=== PATIENT | female | born 1970 | race Caucasian/White ===

== ENCOUNTER → 2017-05-21 | Outpatient (CLI) | payer BC ==
[~2017-05-21] MED LIST: MULT-580 PO; OMEG10007 PO
== END | disposition home or self-care (01) ==
LOC: C.LABSPEC 15:44
PROVIDERS: ATTEND Obstetrics & Gynecology
DX: N76.2 Acute vulvitis (principal)

== ENCOUNTER → 2017-06-09 | Outpatient (CLI) | payer BC | END | disposition home or self-care (01) | LOC: C.PAPS 11:22 | PROVIDERS: ATTEND Obstetrics & Gynecology | DX: Z01.419 Encounter for gynecological examination (general) (routine) without abnormal findings (principal); Z11.51 Encounter for screening for human papillomavirus (HPV) ==

== ENCOUNTER → 2017-12-29 | Outpatient (CLI) | payer OTHER ==
--- NOTE | 2017-12-29 08:46 | DIAGNOSTIC IMAGING REPORT ---
L LOWER EXT JOINT WITHOUT CLINICAL HISTORY: 47 years-old Female presenting with LEFT KNEE PAIN, continued left knee pain status post surgery, possible meniscal tear or other damage. TECHNIQUE: Multisequence, multiplanar MR imaging of the left knee was performed without the use of intravenous contrast. IV contrast: None. COMPARISON: 04/13/2016. FINDINGS: Localizer images: Unremarkable. No bony edema. Osteophytosis noted in the lateral compartment and less extensively in the medial compartment. At least 50% articular cartilage defect in the posterior to mid weightbearing surface of the lateral femoral condyle (series 6 image 15). Similar cartilage thinning evident on the apposing mid to posterior weightbearing surface of the lateral tibial plateau (series 6 image 15). Medial compartment cartilage intact. Focal fissuring in the lateral patellar facet (series 4 image 13). Similar degree of fissuring evident in the medial patellar facet (series 4 image 12). No articular cartilage abnormality of the trochlea. Complex primarily horizontal type tear of the posterior horn-body of the lateral meniscus. Lateral meniscofemoral capsular separation suggested. Central limited increased signal intensity of the posterior horn body junction of the medial meniscus suggestive of degenerative change. Anterior and posterior cruciate ligaments intact. Medial collateral ligament intact though distention of the tibial collateral ligament bursa noted. Lateral collateral ligament complex including the biceps femoris tendon, fibular collateral ligament, popliteus tendon, popliteal fibular ligament, and iliotibial band intact. Quadriceps and patellar tendons intact though mild tendinosis of the origin of the patellar tendon may be present. Infrapatellar subcutaneous edema noted. Small joint effusion. No popliteal cyst. Normal muscle bulk and muscle signal intensity. IMPRESSION: 1. Complex, primarily horizontal type tear of the posterior horn-body of the lateral meniscus with lateral meniscofemoral capsular separation suggested. 2. MCL bursitis. 3. Cartilage defects in the lateral compartment as above with osteophytosis both in the medial and lateral compartment. Electronically signed by: Jenaro Rowland M.D. 12/29/2017 8:44 AM Dictated Date/Time: 12/29/2017 8:27 AM
== END | disposition home or self-care (01) ==
LOC: C.MRI 07:32
PROVIDERS: ATTEND Orthopaedic Surgery
DX: S83.282A Other tear of lateral meniscus, current injury, left knee, initial encounter (principal); M70.52 Other bursitis of knee, left knee; M25.762 Osteophyte, left knee; X58.XXXA Exposure to other specified factors, initial encounter

== ENCOUNTER → 2018-03-10 | Day surgery (SDC) | payer OTHER ==
[2018-02-21 10:03] VITALS: Ht 172.7 cm; Wt 109.1 kg
[~2018-03-10] VITALS: Ht 172.7 cm; Wt 109.1 kg
[~2018-03-10] MED LIST changes: +ATROPINE SULFATE 0.1 MG/ML 5ML SYR IV PRN; +CEFAZOLIN 2000MG IV PUSH 15 ML IV SCH; +DEXAMETHASONE SOD INJ 4 MG/ML VIAL ONE; +EpHEDrine SULFATE INJ 50 MG/ML AMP IV PRN; +EpINEphrine INJ 1MG/ML AMP 1 MG/ML AMP ONE; +FENTANYL CITRATE INJ 50 MCG/1 ML 2 ML VIAL IV PRN; +FENTANYL CITRATE INJ 50 MCG/1 ML 2 ML VIAL ONE; +HYDR-5688 PO; +HYDROCODONE/ACETAMIN 5/325MG TAB PO PRN; +KETOROLAC TROMETHAMINE 30 MG/ML VIAL ONE; +LACTATED RINGER'S 1000ML 1,000 ML IV SCH; +LIDOCAINE HCL 2% 2 ML VIAL (20MG/ML) ONE; +MIDAZOLAM HCL 1 MG/ML 2ML VIAL ONE; -MULT-580 PO; -OMEG10007 PO; +ONDANSETRON INJ 2 MG/ML 2 ML VIAL IV PRN; +ONDANSETRON INJ 2 MG/ML 2 ML VIAL ONE; +OXYM-48; +PROPOFOL IV EMULSION 10 MG/ML 20 ML VIAL ONE; +ROPIVACAINE 0.5% 5 MG/ML 30 ML VIAL ONE; +SCOPOLAMINE 1.5 MG TDSY TD ONE; +SODIUM CHLORIDE 0.9% 1000ML 1,000 ML IV SCH
--- NOTE | 2018-03-10 13:42 | History & Physical Bridge - SC ---
H&P Re-Evaluation Bridge Note: I have examined the patient, reviewed the History & Physical and in the interval since the performance of the History & Physical I have noted the following changes of clinical significance: No changes noted
--- NOTE | 2018-03-10 14:58 | [facility] Post Operative Brief Note ---
Immediate Operative Summary Operative Date March 10, 2018. Pre-Operative Diagnosis Left Knee Lateral Mensical Tear Post-Operative Diagnosis Same with Chondromalacia Procedure(s) Performed Left Knee Arthroscopy, Partial Lateral Meniscectomy, Chondroplasty Surgeon Dr. Jarvis Life Trainer Surgeon(s) Jake Russell PA-C Estimated Blood Loss 5 ML Findings Consistent with Post-Op Diagnosis Specimens None Anesthesia Type General Complication(s) none Disposition Disposition: Recovery Room / PACU
--- NOTE | 2018-03-10 15:03 | Discharge Instructions-SurgCtr ---
Discharge Instructions Date of Service March 10, 2018. Visit Reason for Visit: Left Knee Joint Osteoarthritis, Pain Discharge Discharge Diagnosis / Problem: SAME ABOVE Discharge Goals Goal(s): Decrease discomfort, Improve function Medications Stopped Medications Name(s): no blood thinners Activity Recommendations Activity Limitations: as noted below Lifting Limitations: until after follow-up appointment Shower/Bathe: tomorrow Anesthesia . Post Anesthesia Instructions: If you have had General Anesthesia or IV Sedation: * Do not drive today. * Resume driving when surgeon permits. * Do not make important decisions or sign legal documents today. * Call surgeon for: 1. Temperature elevations greater than 101 degrees F. 2. Uncontrollable pain. 3. Excessive bleeding. 4. Persistent nausea and vomiting. 5. Medication intolerance (nausea, vomiting or rash). * For nausea and vomiting use only clear liquids such as: tea, soda, bouillon until nausea subsides, then gradually increase diet as tolerated. * If you have any concerns or questions, call your surgeon's office. If physician is unavailable and it is an emergency, call 911 or go to the nearest emergency room. . Instructions / Follow-Up Instructions / Follow-Up MEDICATIONS: * Resume previous medications unless instructed otherwise by your surgeon. * Always take pain medication on a full stomach or with food to avoid upset stomach. * Do not drink alcohol or drive while taking narcotics. * Ibuprofen or Tylenol may be taken if narcotic not needed. SPECIAL CARE INSTRUCTIONS: __ None _X_ Keep extremity elevated and iced x 48 hours; apply ice 20-30 minutes 8-10 times/day. May remove at night. _X_ Crutches _X_ May discard when able __ Brace/Post-op shoe __ 24 hrs/day __ Remove at night _X_ Dressing __ Maintain until seen in office, may shower with plastic over site _X_ Remove dressings in 24-48 hours and then may shower _X_ Cover incisions with band-aids after showering __ Do not remove steri-strips Call physician if chills or temperature rises above 102 degrees or pain unrelieved by prescribed pain medications. Office [phone] Diet Recommendations Home Diet: no limitations Fluid Restriction: None Procedures Procedures Performed: Left Knee Arthroscopy, Partial Lateral Meniscectomy, Chondroplasty Pending Studies Studies pending at discharge: no Work Instructions Return To Work: after follow-up Medical Emergencies . Who to Call and When: Medical Emergencies: If at any time you feel your situation is an emergency, please call 911 immediately. . Non-Emergent Contact Non-Emergency issues call your: Primary Care Provider Call Non-Emergent contact if: you have a fever, temperature is above 101.5 . . "Provider Documentation" section prepared by Hugo Russell. .
--- NOTE | 2018-03-10 15:18 | OPERATIVE REPORT ---
DATE OF OPERATION: 03/10/2018 PREOPERATIVE DIAGNOSIS: Recurrent lateral meniscus tear of the left knee. 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 PROCEDURE: Left knee arthroscopy with partial lateral meniscectomy and chondroplasty. SURGEON: Dr. Miles Jarvis. REHAB DEPARTMENT MANAGER: Hugo Russell PA-C, whose assistance was necessary for positioning the leg and help with instrumentation. ANESTHESIA: General. COMPLICATIONS: None. CONDITION: Stable to PACU. INDICATIONS: Romana is a pleasant 47-year-old female who has been having a 2-year history of left knee pain. She underwent arthroscopy at an outside institution in 2016. She then had a reinjury 6 weeks after that. She came to my office and repeat MRI did show a new lateral meniscus tear. She elected to undergo arthroscopy. OPERATION AND FINDINGS: On 03/10/2018, she arrived at [facility] for the above procedure. She was seen in the preoperative holding area and the operative extremity was identified and signed. She was given a preoperative antibiotic, taken back to the operating room, laid on the table in supine position and put under general anesthesia. The left knee was then prepped and draped in sterile fashion. Time-out was done. The patient and operative extremity was properly identified. A scope was introduced in the lateral parapatellar portal. Diagnostic arthroscopy showed no loose bodies in suprapatellar pouch. There was still a small area of grade 2 chondral changes off the lateral patella facet. There was no cartilage damage in the trochlea. The patella tracked in the center of the trochlea. The scope was brought into the medial compartment and a medial parapatellar portal was made under direct visualization. A probe was used to probe the medial meniscus and there were no tears of the meniscus found. There was no cartilage damage in the medial side. The scope was brought into the trochlea. ACL and PCL were intact. Scope was then brought into the lateral compartment. There was some tearing of the mid body of the lateral meniscus. There was also evidence of a prior lateral meniscectomy. A shaver was used to debride back the unstable portions of meniscus. There was also some chondromalacia in the lateral compartment. A shaver was used to complete a chondroplasty of all the loose cartilage fragments. Multiple pictures were taken. The scope was then placed in the medial parapatellar portal. Repeat diagnostic arthroscopy showed no additional pathology. Pictures were taken. The knee was then irrigated and arthroscopic instruments were then removed. Portal sites were closed with 3-0 nylon. The knee was then injected with 30 mL of Naropin with epinephrine and Toradol. She was then placed in a soft compressive dressing, extubated, transferred to a [facility] and taken to the postanesthesia care unit in stable condition. She tolerated the procedure well. I attest to the content of the Intraoperative Record and any orders documented therein. Any exception s are noted below.
[2018-03-10 16:05] VITALS: TEMP 36.7
[2018-03-10 16:23] VITALS: BP 138/85; PULSE 70; O2SAT 99
== END | disposition home or self-care (01) ==
LOC: X.SURG 11:48
PROVIDERS: ATTEND Orthopaedic Surgery
DX: S83.282A Other tear of lateral meniscus, current injury, left knee, initial encounter (principal); X58.XXXA Exposure to other specified factors, initial encounter; M94.262 Chondromalacia, left knee; E66.9 Obesity, unspecified; Z83.3 Family history of diabetes mellitus; Z87.891 Personal history of nicotine dependence

== ENCOUNTER → 2018-06-15 | Outpatient (CLI) | payer OTHER ==
[~2018-06-15] MED LIST changes: -ATROPINE SULFATE 0.1 MG/ML 5ML SYR IV PRN; -CEFAZOLIN 2000MG IV PUSH 15 ML IV SCH; -DEXAMETHASONE SOD INJ 4 MG/ML VIAL ONE; -EpHEDrine SULFATE INJ 50 MG/ML AMP IV PRN; -EpINEphrine INJ 1MG/ML AMP 1 MG/ML AMP ONE; -FENTANYL CITRATE INJ 50 MCG/1 ML 2 ML VIAL IV PRN; -FENTANYL CITRATE INJ 50 MCG/1 ML 2 ML VIAL ONE; -HYDROCODONE/ACETAMIN 5/325MG TAB PO PRN; -KETOROLAC TROMETHAMINE 30 MG/ML VIAL ONE; -LACTATED RINGER'S 1000ML 1,000 ML IV SCH; -LIDOCAINE HCL 2% 2 ML VIAL (20MG/ML) ONE; -MIDAZOLAM HCL 1 MG/ML 2ML VIAL ONE; -ONDANSETRON INJ 2 MG/ML 2 ML VIAL IV PRN; -ONDANSETRON INJ 2 MG/ML 2 ML VIAL ONE; -PROPOFOL IV EMULSION 10 MG/ML 20 ML VIAL ONE; -ROPIVACAINE 0.5% 5 MG/ML 30 ML VIAL ONE; -SCOPOLAMINE 1.5 MG TDSY TD ONE; -SODIUM CHLORIDE 0.9% 1000ML 1,000 ML IV SCH
== END | disposition home or self-care (01) ==
LOC: C.PAPS 18:10
PROVIDERS: ATTEND Obstetrics & Gynecology
DX: Z12.4 Encounter for screening for malignant neoplasm of cervix (principal)

== ENCOUNTER → 2018-06-15 | Outpatient (CLI) | payer OTHER | END | disposition home or self-care (01) | LOC: C.LABSPEC 16:32 | PROVIDERS: ATTEND Obstetrics & Gynecology | DX: N76.0 Acute vaginitis (principal) ==